=== PATIENT | female | born 1965 | race Caucasian/White ===

== ENCOUNTER 2020-06-24 10:06 | Day surgery (SDC) | payer BC ==
[2020-06-22 11:36] VITALS: BMI 37.1
[~2020-06-24 10:06] MED LIST: ACETAMINOPHEN TAB 500 MG TAB PO PRN; DEXAMETHASONE SOD PHOSPHATE 4 MG/ML 1 ML VIAL IV ONE; HEPARIN SODIUM,PORCINE 5,000 UNIT/ML 1 ML VIAL SQ PRN; LACTATED RINGERS 1,000 ML IV SCH; LIDOCAINE 1% (10MG/ML) FOR IV START INTRADERMA PRN; ONDANSETRON 4 MG/2 ML VIAL IVP ONE; Pre Op ABX Message 1 EACH MISC MISCELLANE ONE
[2020-06-24 10:45] VITALS: RESP 16
--- NOTE | 2020-06-24 12:01 | P.GSHP ---
History of Present Illness H&P Date: 06/24/20 Chief Complaint: Internal and external hemorrhoids This a 55-year-old female who presents today for hemorrhoidectomy. Patient probably bleeding and itching for internal and external hemorrhoids Past Medical History Additional Past Medical History / Comment(s): HX RT DETACHED RETINA. HEMORRHOIDECTOMY History of Any Multi-Drug Resistant Organisms: None Reported Past Surgical History: Section, Hysterectomy Additional Past Surgical History / Comment(s): REPAIR DETACHED RT RETINA. COLONOSCOPY. BILAT CATARACTS REMOVED WITH LENS IMPLANTS Past Anesthesia/Blood Transfusion Reactions: No Reported Reaction Smoking Status: Never smoker - Past Family History Father Family Medical History: Cancer Medications and Allergies Home Medications Medication Instructions Recorded Confirmed Type No Known Home Medications 06/22/20 06/24/20 History Allergies Allergy/AdvReac Type Severity Reaction Status Date / Time No Known Allergies Allergy Verified 06/24/20 10:50 Surgical - Exam Vital Signs Temp Pulse Resp BP Pulse Ox 97.9 F 79 16 124/74 96 06/24/20 10:35 06/24/20 10:35 06/24/20 10:35 06/24/20 10:35 06/24/20 10:35 - General well developed, well nourished, no distress - Eyes PERRL - ENT normal pinna - Neck no masses - Respiratory normal expansion - Cardiovascular Rhythm: regular - Abdomen Abdomen: soft, non tender Assessment and Plan Assessment: Internal and external hemorrhoids. We'll perform hemorrhoidectomy.
[2020-06-24] MEDS ORDERED: PROPOFOL 10 MG/ML 20 ML VIAL IV ONE (12:21)
[2020-06-24] MEDS ORDERED: LIDOCAINE 1% INJ 10MG/ML (20 ML MDV) ONE (12:21)
[2020-06-24] MEDS ORDERED: fentaNYL (PF) 50 MCG/ML 2 ML AMP ONE (12:21)
[2020-06-24] MEDS ORDERED: MIDAZOLAM 2 MG/2 ML VIAL ONE (12:21)
[2020-06-24] MEDS ORDERED: SUCCINYLCHOLINE CHLORIDE VIAL 200 MG/10 ML VIAL IV ONE (12:21)
--- NOTE | 2020-06-24 13:08 | P.OP ---
Date of Procedure: 06/24/20 Preoperative Diagnosis: Internal and external hemorrhoids Postoperative Diagnosis: Internal and external Hemorrhoids Procedure(s) Performed: Internal and external hemorrhoidectomy Anesthesia: MICHELLE Surgeon: Catalino Schofield Pathology: other (Internal and external hemorrhoids) Condition: stable Disposition: PACU Description of Procedure: The patient's placed on the operating table in the prone position after receiving general anesthesia. Her anus was prepped and draped usual fashion. Anal retractors placed anus. And then the hemorrhoidal columns were visualized. Patient had a large left lateral hemorrhoidal column in the anterior and posterior right hemorrhoidal column. The left hemorrhoidal column was grasped with a pair of Allis clamps and then using the Harmonic scissors the hemorrhoid was performed. The right anterior and right posterior hemorrhoidal columns were excised in identical fashion. There is no bleeding seen. The anus was packed with Gelfoam. Patient top she will was sent to recovery in stable condition.
[2020-06-24] MEDS ORDERED: BUPIVACAINE (PF) 0.5% 30 ML VIAL SQ ONE (13:11)
[2020-06-24] MEDS ORDERED: LACTATED RINGERS 1,000 ML IV ONE ×2 (13:19)
[2020-06-24 13:27] VITALS: TEMP 97
[2020-06-24 14:17] VITALS: BP 127/76; PULSE 70
== END 2020-06-24 14:47 | disposition home or self-care (01) ==
LOC: OR 10:06
PROVIDERS: ATTEND Surgery
DX: K64.8 Other hemorrhoids (principal); K64.4 Residual hemorrhoidal skin tags; Z86.69 Personal history of other diseases of the nervous system and sense organs; Z98.890 Other specified postprocedural states; Z90.710 Acquired absence of both cervix and uterus; Z98.41 Cataract extraction status, right eye; Z98.42 Cataract extraction status, left eye; Z96.1 Presence of intraocular lens; Z80.9 Family history of malignant neoplasm, unspecified
CPT/HCPCS: 88304; 46260; J2250; J0330; J1644; J1100; J2405; J2001; J3010; J2704